=== PATIENT | male | born 1985 | race Caucasian/White ===

== ENCOUNTER 2016-11-12 09:46 | Emergency (ER) | payer MEDICARE, OTHER ==
[~2016-11-12] VITALS: Ht 185.4 cm; Wt 72.8 kg
[2016-11-12 11:00] LABS: HEMATOCRIT 43.4 % (38.0-50.0); MCH 28.5 PG (29.0-34.0); MCHC 33.4 G/DL (30.0-36.0); MCV 85.3 FL (86-99); MEAN PLAT.VOLUME 10.5 uM^3 (9.0-12.4); PLATELET COUNT 265 K/uL (156-360); RBC DIS.WIDTH-CV 13.3 % (11.8-14.6); RED BLOOD COUNT 5.09 M/uL (4.00-5.50); WHITE BLOOD COUNT 8.5 K/uL (4.1-10.2)
[2016-11-12 11:11] LABS: CHLORIDE 106 mEq/L (99-109); POTASSIUM 4.4 mEq/L (3.7-5.4); SODIUM 140 mEq/L (136-147)
[2016-11-12 11:13] LABS: GLUCOSE 97 mg/dL (70-99)
[2016-11-12 11:14] LABS: ANION GAP 9 MEQ/L (2-14)
[2016-11-12 11:16] LABS: GFR ESTIMATE (CALCULATED) > 59 mL/min/
[2016-11-12 11:17] LABS: UREA NITROGEN (BUN) 14 mg/dL (9-23)
[2016-11-12 11:19] LABS: TROP-I INTERPRETATION NEGATIVE; TROPONIN-I < 0.01 ng/mL (0.0-0.30)
[2016-11-12 11:48] VITALS: BP 129/75
== END 2016-11-12 11:48 | disposition home or self-care (01) ==
LOC: EME 09:46
DX: R20.2 Paresthesia of skin (principal); F17.200 Nicotine dependence, unspecified, uncomplicated
CPT/HCPCS: 70450; 71020; 80048; 81003; 84484; 85027; 93005; 99281; 99283